=== PATIENT | female | born 1955 | race Caucasian/White ===

== ENCOUNTER 2025-02-01 15:23 | Emergency (ER) | payer SELFPAY ==
[~2025-02-01] VITALS: Ht 170.2 cm; Wt 60.0 kg
[2025-02-01 15:34] VITALS: O2SAT 98
[2025-02-01] MEDS: LEVETIRACETAM 1000MG PREMIX 100 ML IV ONE (16:37)
[2025-02-01] MEDS: SODIUM CHLORIDE 0.9% 1,000 ML IV ONE (16:37)
[2025-02-01] MEDS: HALOPERIDOL LACTATE 5MG/ML VIAL IM ONE (16:47)
[2025-02-01] MEDS: LORAZEPAM 2MG/ML UD SYRINGE IM SCH (16:47)
[2025-02-01 17:11] LABS: BASOPHILS % 0.9 % (0.0-2.0); EOSINOPHILS % 1.8 % (0.0-5.0); HEMATOCRIT. 38.2 % (36.0-48.0); HEMOGLOBIN. 12.7 g/dL (12.0-16.0); LYMPHOCYTES % 22.2 % (20.0-50.0); MEAN PLATELET VOLUME 7.8 fl (7.4-10.4); MONOCYTES % 7.5 % (2.0-8.0); NEUTROPHILS % 67.6 % (40.0-76.0); PLATELET 243 x1000/uL (130-400); RED BLOOD CELL COUNT 4.03 mill/uL (4.2-5.4); RED CELL DISTRIBUTION WIDTH 12.8 % (11.6-14.6)
[2025-02-01 17:17] LABS: INR 1.0
[2025-02-01 17:21] LABS: CREATININE 0.7 mg/dL (0.6-1.0); UREA NITROGEN BLOOD 17 mg/dL (9-23)
[2025-02-01 17:23] LABS: ASPARTATE AMINOTRANSFERASE 17 IU/L (<34); BILIRUBIN DIRECT 0.1 mg/dL (<=3.0); BILIRUBIN TOTAL 0.4 mg/dL (0.1-1.0)
[2025-02-01 17:24] LABS: PROTEIN TOTAL 7.0 g/dL (6.0-8.3)
[2025-02-01 18:00] VITALS: TEMP 37.2
[2025-02-01 21:36] LABS: CLARITY URINE CLOUDY (CLEAR); COLOR URINE YELLOW (YELLOW); GLUCOSE URINE NEGATIVE (NEGATIVE); KETONES URINE TRACE (NEGATIVE); LEUKOCYTE ESTERASE URINE NEGATIVE (NEGATIVE); NITRITE URINE NEGATIVE (NEGATIVE); OCCULT BLOOD URINE NEGATIVE (NEGATIVE); PH URINE 7.0 (4.5-8.0); PROTEIN URINE TRACE (NEGATIVE); SPECIFIC GRAVITY URINE 1.024 (1.005-1.030); UROBILINOGEN URINE 1.0 E.U./dL (0.2-1.0)
[2025-02-01 22:07] LABS: AMORPHOUS SEDIMENT URINE 1+ /lpf; BACTERIA URINE 3+; RBC URINE 0-2 /hpf (0-2); SQUAMOUS EPITHELIAL CELL URINE FEW /lpf (RARE/1+); WBC URINE 0-2 /hpf (0-2)
[2025-02-01 22:55] VITALS: BP 92/54; PULSE 66; RESP 14; O2SAT 99
== END 2025-02-01 23:07 | disposition home or self-care (01) ==
LOC: ER 15:23 → EDBD 15:23 → ER 23:07 → CMPBEDREQ 02-02 10:34
DX: R56.9 Unspecified convulsions (principal); F03.90 Unspecified dementia, unspecified severity, without behavioral disturbance, psychotic disturbance, mood disturbance, and anxiety; R06.02 Shortness of breath; Z86.73 Personal history of transient ischemic attack (TIA), and cerebral infarction without residual deficits; Z98.890 Other specified postprocedural states
CPT/HCPCS: 80076; 80048; 81003; 83880; 85025; 85610; 36415; 71045; 70450; 93005; 96365; 96366; 96372; 99285; J1953; J1630; J2060; J7030; Z7610 ×2; A4606